=== PATIENT | female | born 2000 | race Caucasian/White ===

== ENCOUNTER 2024-05-24 19:11 | Emergency (ER) | payer OTHER, SELFPAY ==
[2024-05-24 19:24] VITALS: BP 137/74; PULSE 92; RESP 20; TEMP 37.2; O2SAT 97
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
== END 2024-05-24 19:48 | disposition home or self-care (01) ==
PROVIDERS: Emergency Provider Nurse Practitioner Family
DX: Z71.1 Person with feared health complaint in whom no diagnosis is made (principal)
CPT/HCPCS: 99202; G0463

== ENCOUNTER 2024-07-01 17:14 | Emergency (ER) | payer OTHER, SELFPAY ==
[2024-07-01 18:07] VITALS: BP 143/88; PULSE 86; RESP 20; TEMP 36.9; O2SAT 100
--- NOTE | 2024-07-01 18:16 | ED_ITS ---
HPI - Ear Problem General Chief complaint: Ear Stated complaint: cough/chest heavy Time Seen by Provider: 07/01/24 18:16 Source: patient, RN notes reviewed and old records reviewed Mode of arrival: ambulatory Limitations: no limitations History of Present Illness HPI Narrative: 24-year-old female to Express Care with complaint of bilateral ear pain and dry cough for 6 days. Patient does not disclose treat home. Patient denies fever, allergies, pertinent medical history, difficulty swallowing hearing changes. Patient able to tolerate fluids mouth. Patient resting comfortably in exam room in acute distress. Respirations even nonlabored. Related Data Home Medications Medication Instructions Recorded Confirmed sertraline 50 mg tablet 50 mg PO DAILY 05/24/24 07/03/24 Allergies Allergy/AdvReac Type Severity Reaction Status Date / Time No Known Allergies Allergy Verified 07/03/24 17:07 Review of Systems Review of Systems: All systems reviewed & are unremarkable except as noted in HPI and below Constitutional: Constitutional: Reports no additional constitutional complaints Eyes: Eyes: Reports no additional eye complaints ENT: Reports as per HPI and Reports otalgia ( Bilateral) Cardiovascular: Cardiovascular: Reports no additional cardiovascular complaints, Denies chest pain and Denies dyspnea Respiratory: Respiratory: Reports no additional respiratory complaints, Report s cough and Denies dyspnea Musculoskeletal: Musculoskeletal: Reports no additional musculoskeletal complaints Neurologic: Reports system reviewed and no additional complaints, except as documented Psychiatric: Psychiatric: Reports no additional psychiatric complaints PMFSH Past Medical History Medical History Depression Ear infection Social History Social History Smoking status: Current every day smoker Tobacco type: cigarettes and e-cigarettes/vaping Alcohol intake: unknown Substance use type: does not use Living arrangements: with family Gender identity (if verbalized by the patient): Female Comments At the time of my signature, I reviewed and agree with the nursing past medical, surgical, social, and family history. There is no relevant family history pertinent to the patient complaint. Exam Const: General: cooperative, healthy appearing, no acute distress, alert and well nourished Nutritional Appearance: well nourished Orientation/consciousness: patient oriented x3 Limitations: no limitations HENMT: Head: normal to inspection Ears: external ears normal, Abnormal EAC present EAC tenderness bilateral and TM abnormal bulging on the right, dull bilateral, erythematous bilateral, with fluid behind the TM bilateral and with loss of landmarks on the right Face/Nose/Sinus: Normal external nose present, Normal nares present, normal facial exam, No erythema and No edema Face and sinus: normal facial exam, no erythema and no edema Mouth: Yes Normal oral and palatal mucosa present Throat: posterior oropharynx abnormal erythema Eyes: General: appearance normal, both eyes and all related structures Neck: Neck: normal visual inspection, full ROM and no meningeal signs Lymphatic: no lymphadenopathy noted and no lymphedema noted Chest: Chest palpation & inspection: normal inspection of the chest Resp: Effort & Inspection: normal respiratory effort and able to speak in complete sentences Auscultation: clear to auscultation bilaterally Cardio: Jugular venous distension: no JVD Rate: regular rate Rhythm: regular rhythm Back/Spine/Pelvis: Cervical Spine: cervical ROM normal Skin: General skin exam: normal color, no rashes or lesions noted and turgor normal Neuro: General: patient oriented x3, gait normal, moves all extremities and no meningeal signs Speech: normal speech Gait exam (Neuro): Normal gait present Extrem: General: normal to inspection, full ROM and capillary refill normal Psych: Appearance: grossly normal and well kempt Course Course Emergency Course: Some parts of this dictation were generated by voice recognition software and may contain typographical and/or grammatical inaccuracies. Level of Care: Express Care Visit Vital Signs Vital signs: Vital Signs Temperature 36.9 C 07/01/24 18:07 Pulse Rate 86 07/01/24 18:07 Respiratory Rate 20 07/01/24 18:07 Blood Pressure 143/88 H 07/01/24 18:07 Pulse Oximetry 100 07/01/24 18:07 Temperature 36.9 C 07/01/24 18:07 Pulse Rate 86 07/01/24 18:07 Respiratory Rate 20 07/01/24 18:07 Blood Pressure 143/88 H 07/01/24 18:07 Pulse Oximetry 100 07/01/24 18:07 reviewed Medical Decision Making MDM Narrative Medical decision making narrative: 24-year-old female to Express Care with complaint of bilateral ear pain and dry cough for 6 days. Patient does not disclose treat home. Patient denies fever, allergies, pertinent medical history, difficulty swallowing hearing changes. Patient able to tolerate fluids mouth. Patient resting comfortably in exam room in acute distress. Respirations even nonlabored. Patient is sitting comfortably in exam room nontoxic in appearance. on exam, bilateral TMs erythematous, dull with fluid. Right TM bulging with loss landmarks. Posterior oropharynx erythematous. Findings consistent with bilateral otitis media. Patient appropriate for outpatient treatment and follow-up. Discharge instructions reviewed with patient, as well as provided in writing per nursing staff. The instructions also include specific and strict return/GO TO THE ER as well as f/u information. All questions have been answered, and the patient deny any further questions with discharge and discharge plan. Some parts of this dictation were generated by voice recognition software and may contain typographical and/or grammatical inaccuracies. Differential Diagnosis Differential Diagnosis: Otitis media, otitis externa, ruptured tympanic membrane, upper respiratory infection, COVID, influenza Vital Signs Vital Signs: Vital Signs Temperature 36.9 C 07/01/24 18:07 Pulse Rate 86 07/01/24 18:07 Respiratory Rate 20 07/01/24 18:07 Blood Pressure 143/88 H 07/01/24 18:07 Pulse Oximetry 100 07/01/24 18:07 Temperature 36.9 C 07/01/24 18:07 Pulse Rate 86 07/01/24 18:07 Respiratory Rate 20 07/01/24 18:07 Blood Pressure 143/88 H 07/01/24 18:07 Pulse Oximetry 100 07/01/24 18:07 Discharge Plan Discharge Clinical Impression: Bilateral acute otitis media Patient Disposition: Home, Self-Care Condition: Stable Instructions: Ear Infection (AC) Additional Instructions: -Alternate Tylenol and Motrin per package directions for fever or pain. -Antihistamine medication such as Benadryl at night and Zyrtec/Claritin/Christa during the day can help improve symptoms. -Use Flonase twice a day for 5 days then daily to help reduce the inflammation and dry up your sinuses. -You can also use Sudafed or Mucinex. Be sure to drink plenty of water with these medications at least 8 ounces with every dose and it is important to drink 8 to 10 glasses of water per day. Water is a natural decongestant -Eat and drink things that are easy to swallow, like tea or soup, or popsicles. -Oral rinses such as: Salt water gargles and/or may use topical anesthetic (eg. Chloraseptic spray) or lozenges to relieve dryness or throat pain). -Frequent hand washing or hand marketing intelligence analyst is one of the best ways to prevent spread of infection. -Using a vaporizer or humidifier at night will also help thin secretions and help with coughing up phlegm. -Follow up with primary care provider in 2-3 days if condition is not improving; or seek ER visit if you have trouble breathing, cannot drink enough fluids, have muffled voice, difficulty opening your mouth, or severe swelling. Prescriptions: New amoxicillin 875 mg tablet 875 mg PO Q12H Qty: 20 0RF Rx Instructions: STARTED ON 07/01/24 No Action sertraline 50 mg tablet 50 mg PO DAILY prednisone 20 mg tablet 20 mg PO BID Qty: 10 0RF promethazine-DM 6.25-15 mg/5 mL syrup 5 ml PO Q4-6H PRN (Reason: cough) Qty: 120 0RF Follow-up/Referrals: PHYSICIAN NOT ON STAFF,NONSTAFF [Primary Care Provider] - Stand Alone Forms: Work/School Release IP
== END 2024-07-01 18:28 | disposition home or self-care (01) ==
PROVIDERS: Emergency Provider Nurse Practitioner Family
DX: H66.93 Otitis media, unspecified, bilateral (principal); F17.210 Nicotine dependence, cigarettes, uncomplicated; F17.290 Nicotine dependence, other tobacco product, uncomplicated; F32.A Depression, unspecified
CPT/HCPCS: 99213; G0463

== ENCOUNTER 2024-07-03 16:47 | Emergency (ER) | payer OTHER, SELFPAY ==
[2024-07-03 16:56] VITALS: BP 130/71; PULSE 73; RESP 18; TEMP 36.3; O2SAT 99
--- NOTE | 2024-07-03 17:07 | ED.URI ---
HPI - URI/Sore Throat General Chief Complaint: Upper Respiratory Infection Stated Complaint: Cough Time Seen by Provider: 07/03/24 17:07 Source: patient, RN notes reviewed and old records reviewed Mode of arrival: ambulatory Limitations: no limitations History of Present Illness HPI Narrative: 24 year old female who presents to [facility] care accompanied by mother with complaints of cough for the past week and has been taking DayQuil and NyQuil and also Tussin without improvement. Patient seen in clinic on the and received Amoxicillin for double ear infection which she reports that she has been taking. Patient admits to vaping and cigarette use. MD elicited complaint: cough and other (bilateral ear infection) Onset (ago): week(s) (1) Severity: moderate Able to tolerate fluids by mouth: Yes Treatments prior to arrival: antibiotics and other (DayQuil, NyQuil and Tussin) Related Data Home Medications Medication Instructions Recorded Confirmed sertraline 50 mg tablet 50 mg PO DAILY 05/24/24 07/03/24 Allergies Allergy/AdvReac Type Severity Reaction Status Date / Time No Known Allergies Allergy Verified 07/03/24 17:07 Review of Systems Review of Systems: CONSTITUTIONAL: Denies malaise, chills, sweats, or fever. EYES: Denies visual changes, redness, or discharge. ENT: Reports rhinorrhea, congestion, no sinus pain, bilateral otalgia and no sore throat. CARDIOVASCULAR: Denies chest pain, palpitations, or edema. RESPIRATORY: Reports cough dry.? Denies dyspnea. GASTROINTESTINAL: Denies abdominal pain, nausea, vomiting, diarrhea SKIN: Denies rash or itching. MUSCULOSKELETAL: Denies myalgia. NEUROLOGIC: Denies headache. All systems reviewed & are unremarkable except as noted in HPI and below PMFSH Past Medical History Medical History Depression Ear infection Social History Social History Smoking status: Current every day smoker Tobacco type: cigarettes and e-cigarettes/vaping Alcohol intake: unknown Substance use type: does not use Living arrangements: with family Gender identity (if verbalized by the patient): Female Comments At time of signature, agree with nursing past medical, surgical, social and family history. There is no relevant family history pertinent to the presenting complaint Exam Narrative: GENERAL: Well-appearing, well-nourished, and in no acute distress. HEAD: Normocephalic EYES: PERRLA, conjunctivae clear ENT: Nares clear, turbinates edematous and erythematous, clear discharge. Mucous membranes moist.Mild redness bilateral TM presently on Amoxicillin for ear infection; no tragal tenderness. Oropharynx erythematous without lesions. Tonsils not enlarged and without exudate, no drooling, no hoarseness, no trismus, uvula midline.post nasal drainage noted NECK: Supple. No lymphadenopathy CHEST: Clear to auscultation, breath sounds equal. No wheezing, rhonchi, rales, or stridor. No respiratory distress, speaks in full sentences.dry cough noted HEART: Regular rate and rhythm. No murmur heard. SKIN: Warm, dry, no rash. NEURO: Alert and oriented x3. PSYCH: Normal mood and affect Course Course Emergency Course: Patient is aware of diagnosis, understands and agrees to treatment plan.? Anticipatory guidance given.? Patient agrees to follow-up as directed and is aware of reasons to seek care at the emergency department. Portions of this record may have been created with voice recognition software Level of Care: Express Care Visit Vital Signs Vital signs: Vital Signs Temperature 36.3 C L 07/03/24 16:56 Pulse Rate 73 07/03/24 16:56 Respiratory Rate 18 07/03/24 16:56 Blood Pressure 130/71 07/03/24 16:56 Pulse Oximetry 99 07/03/24 16:56 Oxygen Delivery Room Air 07/03/24 16:56 Temperature 36.3 C L 07/03/24 16:56 Pulse Rate 73 07/03/24 16:56 Respiratory Rate 18 07/03/24 16:56 Blood Pressure 130/71 07/03/24 16:56 Pulse Oximetry 99 07/03/24 16:56 Oxygen Delivery Room Air 07/03/24 16:56 Reviewed MDM - URI/Sore Throat MDM Narrative Medical decision making narrative: Differential diagnosis considered: Kang virus, strep pharyngitis, allergic rhinitis, upper respiratory tract infection, sinusitis, rhinosinusitis, nasopharyngitis. viral pharyngitis, otitis media, otitis externa, pneumonia, bronchitis, viral cough syndrome, viral syndrome, and influenza.? Exam findings show no acute concerns or changes; patient is non-toxic appearing and is in no distress.? Patient is appropriate for outpatient treatment and follow-up. Differential Diagnosis Differential diagnosis: Likely upper respiratory infection, otitis media, viral infection and other (acute cough) Lab Data Attestation: I reviewed the patient's lab results. Critical Care Time Critical Care Time Critical Care Time: No Discharge Plan Discharge Clinical Impression: Acute cough Patient Disposition: Home, Self-Care Condition: Stable Instructions: Antibiotic Form, Acute Cough (ED) Additional Instructions: Increase fluids especially juices and water [id number] cough and cold medicine of your choice for your symptoms Prescription cough medicine as directed--caution drowsiness and no driving or alcohol Tylenol or ibuprofen for any fever pain Zyrtec D daily Steroids as directed--take with food heat to the face 20-30 minutes 4-6 times a day for pain Salt water gargles, throat lozenges or throat sprays as desired Continue antibiotics that were ordered on the as ordered. If your symptoms persist, change or worsen significantly before you can contact your personal physician then please, without delay, go to the emergency department for further evaluation. Follow-up with PCP in 7-10 days or sooner if needed Follow up with PCP soon in regards to your blood pressure which is elevated above threshold for referral. Blood pressure above 120/80 may indicate pre-hypertension. 130/71 Prescriptions: New prednisone 20 mg tablet 20 mg PO BID Qty: 10 0RF promethazine-DM 6.25-15 mg/5 mL syrup 5 ml PO Q4-6H PRN (Reason: cough) Qty: 120 0RF No Action sertraline 50 mg tablet 50 mg PO DAILY amoxicillin 875 mg tablet 875 mg PO Q12H Qty: 20 0RF Rx Instructions: STARTED ON 07/01/24 Follow-up/Referrals: UNKNOWN,DOCTOR [Primary Care Provider] - Time of Disposition: 17:27 Quality [place] Coma Scale Eyes: Open Verbal: Oriented and Alert Motor: Follows Commands [place] Coma Total Score: 15
== END 2024-07-03 17:28 | disposition home or self-care (01) ==
PROVIDERS: Emergency Provider Registered Nurse
DX: R05.1 Acute cough (principal); F17.210 Nicotine dependence, cigarettes, uncomplicated; F17.290 Nicotine dependence, other tobacco product, uncomplicated; F32.A Depression, unspecified
CPT/HCPCS: 99213; G0463

== ENCOUNTER 2024-11-29 10:33 | Emergency (ER) | payer OTHER, SELFPAY ==
[2024-11-29 10:38] VITALS: BP 146/73; PULSE 70; RESP 20; TEMP 36.3; O2SAT 99
--- NOTE | 2024-11-29 10:47 | ED.EAR ---
HPI - Ear Problem General Chief complaint: Ear Stated complaint: poss ear infection Time Seen by Provider: 11/29/24 10:47 Source: patient, RN notes reviewed and old records reviewed Mode of arrival: ambulatory Limitations: no limitations History of Present Illness HPI Narrative: 24 year old female who [facility] to [facility] with complaints of ear pain starting yesterday to bilateral ears with left ear the worse. Patient reports that she also has noted some cough and also some nasal drainage. Patient reports no fevers, chills or sweats, denies any sore throat. body aches or headache pain. 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 MD Complaint: ear pain Location: left ear Duration: constant Severity: moderate Discharge from ear: Reports no Associated symptoms ear: other (pain left ear) Related Data Home Medications ?Medication ?Instructions ?Recorded ?Confirmed ?Last Taken ?Type sertraline 50 mg tablet 50 mg PO DAILY 05/24/24 11/29/24 Unknown History Allergies Allergy/AdvReac Type Severity Reaction Status Date / Time No Known Allergies Allergy Verified 11/29/24 10:40 Review of Systems Review of Systems: CONSTITUTIONAL: Denies malaise, chills, sweats, or fever. EYES: Denies visual changes, redness, or discharge. ENT: Reports rhinorrhea, congestion,no sinus pain,positive otalgia and no sore throat. CARDIOVASCULAR: Denies chest pain, palpitations, or edema. RESPIRATORY: Reports cough.? Denies dyspnea. GASTROINTESTINAL: Denies abdominal pain, nausea, vomiting, diarrhea SKIN: Denies rash or itching. MUSCULOSKELETAL: Denies myalgia. NEUROLOGIC: Denies headache. All systems reviewed & are unremarkable except as noted in HPI and below PMFSH Past Medical History Medical History Ear infection Depression Social History Social History Smoking status: Current every day smoker Tobacco type: cigarettes and e-cigarettes/vaping Alcohol intake: unknown Substance use type: does not use Living arrangements: with family Gender identity (if verbalized by the patient): Female Comments At time of signature, agree with nursing past medical, surgical, social and family history. There is no relevant family history pertinent to the presenting complaint Exam Narrative: GENERAL: Well-appearing, well-nourished, and in no acute distress. HEAD: Normocephalic EYES: PERRLA, conjunctivae clear ENT: Nares clear, turbinates edematous and erythematous, clear discharge. Mucous membranes moist Left TM with redness, Right TM pearly dumont with dull light reflex bilaterally; no tragal tenderness. Oropharynx erythematous without lesions. Tonsils not enlarged and without exudate, no drooling, no hoarseness, no trismus, uvula midline.post nasal discharge noted NECK: Supple. No lymphadenopathy CHEST: Clear to auscultation, breath sounds equal. No wheezing, rhonchi, rales, or stridor. No respiratory distress, speaks in full sentences. occasional cough noted SAO2 99% on room air HEART: Regular rate and rhythm. No murmur heard. SKIN: Warm, dry, no rash. NEURO: Alert and oriented x3. PSYCH: Normal mood and affect Course Course Emergency Course: Patient is aware of diagnosis, understands and agrees to treatment plan.? Anticipatory guidance given.? Patient agrees to follow-up as directed and is aware of reasons to seek care at the emergency department. Portions of this record may have been created with voice recognition software Level of Care: Express Care Visit Vital Signs Vital signs: Vital Signs Temperature 36.3 C L 11/29/24 10:38 Pulse Rate 70 11/29/24 10:38 Respiratory Rate 20 11/29/24 10:38 Blood Pressure 146/73 H 11/29/24 10:38 Pulse Oximetry 99 11/29/24 10:38 Oxygen Delivery Room Air 11/29/24 10:38 Temperature 36.3 C L 11/29/24 10:38 Pulse Rate 70 11/29/24 10:38 Respiratory Rate 20 11/29/24 10:38 Blood Pressure 146/73 H 11/29/24 10:38 Pulse Oximetry 99 11/29/24 10:38 Oxygen Delivery Room Air 11/29/24 10:38 Reviewed Medical Decision Making Differential Diagnosis Differential Diagnosis: URI, otitis media, cough, rhinitis, Medical Records Medical records reviewed: Yes I reviewed the external patient's medical records. Vital Signs Vital Signs: Vital Signs Temperature 36.3 C L 11/29/24 10:38 Pulse Rate 70 11/29/24 10:38 Respiratory Rate 20 11/29/24 10:38 Blood Pressure 146/73 H 11/29/24 10:38 Pulse Oximetry 99 11/29/24 10:38 Oxygen Delivery Room Air 11/29/24 10:38 Temperature 36.3 C L 11/29/24 10:38 Pulse Rate 70 11/29/24 10:38 Respiratory Rate 20 11/29/24 10:38 Blood Pressure 146/73 H 11/29/24 10:38 Pulse Oximetry 99 11/29/24 10:38 Oxygen Delivery Room Air 11/29/24 10:38 reviewed Critical Care Time Critical Care Time Critical Care Time: No Discharge Plan Discharge Clinical Impression: Left otitis media Qualifiers: Otitis media type: serous Chronicity: acute Recurrence: not specified as recurrent Qualified Code(s): H65.02 - Acute serous otitis media, left ear URI (upper respiratory infection) Qualifiers: URI type: unspecified URI Qualified Code(s): J06.9 - Acute upper respiratory infection, unspecified Patient Disposition: Home, Self-Care Condition: Stable Instructions: Antibiotic Form, Ear Infection (GEN) Additional Instructions: Increase fluids especially juices and water Xvvk-tyi-eilwawl cough and cold medicine of your choice for your symptoms Zyrtec Claritin or Christa daily heat to the face 20-30 minutes 4-6 times a day for pain Salt water gargles, throat lozenges or throat sprays as desired Amoxicillin as prescribed take all doses If your symptoms persist, change or worsen significantly before you can contact your personal physician then please, without delay, go to the emergency department for further evaluation. Follow-up with PCP in 7-10 days or sooner if needed Follow up with PCP soon in regards to your blood pressure which is elevated above threshold for referral. Blood pressure above 120/80 may indicate pre-hypertension. 146/ Patient Language: Marshallese Prescriptions: New amoxicillin 875 mg tablet 875 mg PO Q12H Qty: 20 0RF Allergy Relief (loratadine) 10 mg capsule 10 mg PO DAILY Qty: 30 0RF No Action sertraline 50 mg tablet 50 mg PO DAILY amoxicillin 875 mg tablet 875 mg PO Q12H Qty: 20 0RF Rx Instructions: STARTED ON 07/01/24 prednisone 20 mg tablet 20 mg PO BID Qty: 10 0RF promethazine-DM 6.25-15 mg/5 mL syrup 5 ml PO Q4-6H PRN (Reason: cough) Qty: 120 0RF Follow-up/Referrals: PHYSICIAN NOT ON STAFF,NONSTAFF [Primary Care Provider] - Time of Disposition: 10:58 Quality Clare Coma Scale Eyes: Open Verbal: Oriented and Alert Motor: Follows Commands Clare Coma Total Score: 15
--- OUTSIDE RECORDS SUMMARY | 2024-11-29 12:19 | XMS_ITS | Clinical Summary ---
Author Organization [facility] Address [id number] [place] [id number] Care Team Providers Care Automatic Transmission Mechanic Name Role Phone Unavailable Primary Care Provider Unavailabl e Medications sertraline (ZOLOFT) 50 mg tablet Take 1 Tablet by mouth daily. 09/24/2024 Active Active Problems No known active problems Encounters Date Type Department Care Team Description 11/24/2024 External Device Data [facility] ABSTRACTION Provider, Abstract 11/24/2024 External Device Data [facility] ABSTRACTION Provider, Abstract 11/13/2024 External Device Data [facility] ABSTRACTION Provider, Abstract 11/12/2024 External Device Data [facility]STRACTION Provider, Abstract 11/10/2024 External Device Data [facility]STRACTION Provider, Abstract 10/27/2024 External Device Data [facility] ABSTRACTION Provider, Abstract 10/05/2024 External Device Data [facility] ABSTRACTION Provider, Abstract 10/05/2024 External Device Data [facility] ABSTRACTION Provider, Abstract 10/05/2024 External Device Data [facility] ABSTRACTION Provider, Abstract 10/01/2024 3:15 PM DIRECTOR OF WEB MARKETING Ancillary Procedure [facility] [id number] [place] [address] [place] [address] Elvin Hanna DNP Injury of left ankle, initial encounter 10/01/2024 2:45 PM DIRECTOR OF WEB MARKETING Office Visit [facility] [id number] [address] Elvin Hanna DNP Injury of left ankle, initial encounter (Primary Dx) from Last 3 Months Social History Tobacco Use Types Packs/Day Years Used Date Smoking Tobacco: Never Smokeless Tobacco: Never Tobacco Cessation:Counseling Given: Not Answered Alcohol Use Standard Drinks/Week Comments Yes 0 (1 standard drink = 0.6 oz pur e alcohol) Comments Unknown Sex and Gender Information Value Date Recorded Sex Assigned at Not on file Legal Sex Female 2:32 PM DIRECTOR OF WEB MARKETING Gender Identity Not on file Sexual Orientation Not on file Last Filed Vital Signs Vital Sign Reading Time Taken Comments Blood Pressure 122/83 10/01/2024 2:43 PM DIRECTOR OF WEB MARKETING Pulse 72 10/01/2024 2:43 PM DIRECTOR OF WEB MARKETING Temperature 36.6 C (97.8 F) 10/01/2024 2:43 PM DIRECTOR OF WEB MARKETING Respiratory Rate 19 10/01/2024 2:43 PM DIRECTOR OF WEB MARKETING Oxygen Saturation 97% 10/01/2024 2:43 PM DIRECTOR OF WEB MARKETING Inhaled Oxygen Concentration - - Weight 106.6 kg (235 lb) 10/01/2024 2:43 PM DIRECTOR OF WEB MARKETING Height 165.1 cm (5' 5 ) 10/01/2024 2:43 PM DIRECTOR OF WEB MARKETING Body Mass Index 39.11 10/01/2024 2:43 PM DIRECTOR OF WEB MARKETING Plan of Treatment Health Maintenance Due Date Last Done Comments HPV VACCINES (1 - 3-dose series) 2014 DTAP/TDAP/TD VACCINES (1 - Tdap) 2018 HEPATITIS B VACCINES (1 of 3 - 19+ 3-dose series) 10/2017 CERVICAL CANCER SCREENING 2020 PAP SMEAR 2020 PAP SMEAR 2020 INFLUENZA VACCINE (#1) 2024 Procedures Procedure Name Priority Date/Time Associated Diagnosis Comments XR ANKLE 3+ VW LEFT Stat 10/01/2024 3 :16 PM DIRECTOR OF WEB MARKETING Injury of left ankle, initial encounter from Last 3 Months Results * XR ANKLE 3+ VW LEFT (10/01/2024 3:16 PM DIRECTOR OF WEB MARKETING) Anatomical Region Laterality Modality Ankle / Foot Computed Radiogr aphy 10/01/2024 3:17 PM DIRECTOR OF WEB MARKETING Impressions 10/01/2024 3:23 PM DIRECTOR OF WEB MARKETING IMPRESSION: No acute findings. DICTATION LOCATION: Location 1 - [facility] Narrative 10/01/2024 3:23 PM DIRECTOR OF WEB MARKETING EXAM: XR ANKLE 3+ VW LEFT DIAGNOSIS/REASON FOR EXAM: Injury of left ankle, initial encounter, fell on ice DATE AND TIME: 10/01/2024 3:16 PM COMPARISON: None available TECHNIQUE: Three views of the left ankle FINDINGS: No acute fracture or dislocation. Ankle mortise is congruent. No degenerative findings. No ankle effusion or significant soft tissue swelling. Procedure Note Josafat Glover MD - 10/01/2024 EXAM: XR ANKLE 3+ VW LEFT DIAGNOSIS/REASON FOR EXAM: Injury of left ankle, initial encounter, fell on ice DATE AND TIME: 10/01/2024 3:16 PM COMPARISON: None available TECHNIQUE: Three views of the left ankle FINDINGS: No acute fracture or dislocation. Ankle mortise is congruent. No degenerative findings. No ankle effusion or significant soft tissue swelling. IMPRESSION: No acute findings. DICTATION LOCATION: Location - [facility] us Elvin Hanna DNP DIAGNOSTIC IMAGING ORDERABLES F inal Result from Last 3 Months
== END 2024-11-29 11:01 | disposition home or self-care (01) ==
PROVIDERS: Emergency Provider Registered Nurse
DX: H65.02 Acute serous otitis media, left ear (principal); J06.9 Acute upper respiratory infection, unspecified; F17.210 Nicotine dependence, cigarettes, uncomplicated; F17.290 Nicotine dependence, other tobacco product, uncomplicated; F32.A Depression, unspecified
CPT/HCPCS: 99213; G0463

== ENCOUNTER 2025-02-02 16:45 | Emergency (ER) | payer SELFPAY ==
--- OUTSIDE RECORDS SUMMARY | 2025-02-02 16:48 | XMS_ITS | Encounter Summary ---
Author Organization [facility] Address [address] [place] [address] Care Team Providers Care Workplace Trainer And Assessor Name Role Phone Unavailable Primary Care Provider Unavailabl e Encounter Details Date Type Department Care Team (Late st Contact Info) Description 02/01/2025 External Device Data [facility] Provider, Abstract NO ADDRESS ON FILE Social History Tobacco Use Types Packs/Day Years Used Date Smoking Tobacco: Never Smokeless Tobacco: Never Alcohol Use Standard Drinks/Week Comments Yes 0 (1 standard drink = 0.6 oz pur e alcohol) Comments Unknown Sex and Gender Information Value Date Recorded Sex Assigned at Not on file Legal Sex Female 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
--- OUTSIDE RECORDS SUMMARY | 2025-02-02 16:48 | XMS_ITS | Clinical Summary ---
Author Organization [facility] Address [id number] [place] [id number] Care Team Providers Care Motor Equipment Lieutenant Name Role Phone Unavailable Primary Care Provider Unavailabl e Medications sertraline (ZOLOFT) 50 mg tablet Take 1 Tablet by mouth daily. 09/24/2024 Active Active Problems No known active problems Encounters Date Type Department Care Team Description 02/01/2025 External Device Data [facility] Provider, Abstract 01/27/2025 External Device Data [facility] ABSTRACTION Provider, Abstract 01/26/2025 External Device Data [facility]STRACTION Provider, Abstract 01/25/2025 External Device Data [facility]STRACTION Provider, Abstract 12/21/2024 External Device Data [facility] ABSTRACTION Provider, Abstract 11/24/2024 External Device Data [facility]STRACTION Provider, Abstract 11/24/2024 External Device Data [facility] ABSTRACTION Provider, Abstract 11/13/2024 External Device Data [facility] ABSTRACTION Provider, Abstract 11/12/2024 External Device Data [facility] ABSTRACTION Provider, Abstract 11/10/2024 External Device Data [facility] ABSTRACTION Provider, Abstract from Last 3 Months Social History Tobacco Use Types Packs/Day Years Used Date Smoking Tobacco: Never Smokeless Tobacco: Never Tobacco Cessation:Counseling Given: Not Answered Alcohol Use Standard Drinks/Week Comments Yes 0 (1 standard drink = 0.6 oz pur e alcohol) Comments Unknown Sex and Gender Information Value Date Recorded Sex Assigned at Not on file Legal Sex Female 2:32 PM METAL ROOM DENTAL TECHNICIAN Gender Identity Not on file Sexual Orientation Not on file Last Filed Vital Signs Vital Sign Reading Time Taken Comments Blood Pressure 122/83 10/01/2024 2:43 PM METAL ROOM DENTAL TECHNICIAN Pulse 72 10/01/2024 2:43 PM METAL ROOM DENTAL TECHNICIAN Temperature 36.6 C (97.8 F) 10/01/2024 2:43 PM METAL ROOM DENTAL TECHNICIAN Respiratory Rate 19 10/01/2024 2:43 PM METAL ROOM DENTAL TECHNICIAN Oxygen Saturation 97% 10/01/2024 2:43 PM METAL ROOM DENTAL TECHNICIAN Inhaled Oxygen Concentration - - Weight 106.6 kg (235 lb) 10/01/2024 2:43 PM METAL ROOM DENTAL TECHNICIAN Height 165.1 cm (5' 5) 10/01/2024 2:43 PM METAL ROOM DENTAL TECHNICIAN Body Mass Index 39.11 10/01/2024 2:43 PM METAL ROOM DENTAL TECHNICIAN Plan of Treatment Health Maintenance Due Date Last Done Comments HPV VACCINES (1 - 3-dose series) 2014 DTAP/TDAP/TD VACCINES (1 - Tdap) 2018 HEPATITIS B VACCINES (1 of 3 - 19+ 3-dose series) 10/2017 CERVICAL CANCER SCREENING 2020 HPV/Cotest (21-29) 2020 PAP SMEAR 2020 INFLUENZA VACCINE (#1) 2024
[2025-02-02 16:56] VITALS: BP 143/75; PULSE 95; RESP 20; TEMP 36.7; O2SAT 99
[2025-02-02 17:09] LABS: EDSTREPNEGPOS1 Negative (Negative)
--- NOTE | 2025-02-02 17:09 | ED_ITS ---
HPI - URI/Sore Throat General Chief Complaint: Upper Respiratory Infection Stated Complaint: sorethroat Time Seen by Provider: 02/02/25 17:09 Source: patient Mode of arrival: ambulatory Limitations: no limitations History of Present Illness HPI Narrative: 24-year-old female presents with complaint Runny nose, postnasal drainage, sore throat, cough for the past 4-5 days. Afebrile. Not taking any [id number] medications to treat symptoms. all systems reviewed and negative except noted above. Related Data Home Medications ?Medication ?Instructions ?Recorded ?Confirmed ?Last Taken ?Type sertraline 50 mg tablet 50 mg PO DAILY 05/24/24 11/29/24 Unknown History Allergies Allergy/AdvReac Type Severity Reaction Status Date / Time No Known Allergies Allergy Verified 02/02/25 17:01 Review of Systems Review of Systems: CONSTITUTIONAL: Denies fever, chills, or sweats. EYES: Denies visual changes, redness, or discharge. ENT: Reports rhinorrhea, congestion, sore throat. Denies otalgia. CARDIOVASCULAR: Denies chest pain, palpitations, or edema. RESPIRATORY: reports cough. Denies dyspnea. GASTROINTESTINAL: Denies abdominal pain, nausea, vomiting, or diarrhea. GENITOURINARY: Denies dysuria or hematuria. SKIN: Denies rash or itching. MUSCULOSKELETAL: Denies back pain, joint pain, or myalgia. NEUROLOGIC: Denies headache, numbness, or weakness. PSYCHIATRIC: Denies anxiety or depression. All other systems reviewed are negative, except as documented in HPI. PMFSH Past Medical History Medical History Ear infection Depression Social History Social History Smoking status: Current every day smoker Tobacco type: cigarettes and e-cigarettes/vaping Alcohol intake: unknown Substance use type: does not use Living arrangements: with family Gender identity (if verbalized by the patient): Female Comments At time of signature, agree with nursing past medical, surgical, social and family history. There is no relevant family history pertinent to the presenting complaint. Exam Narrative: GENERAL: This is a well-nourished, well-developed patient, in no apparent distress. HEAD: normocephalic, atraumatic. EYES: PERRL. Sclera clear/white. Vision is grossly intact. EARS: External ears normal, auditory canals clear and without drainage, TMs normal without perforation. Hearing grossly intact. NOSE: External nose normal with clear nasal drainage, erythema to bilateral nares THROAT: Mucous membranes moist, postnasal drainage without erythema, swelling or exudates NECK: Neck supple, non-tender without lymphadenopathy, masses or thyromegaly. CARDIOVASCULAR: Regular rate and rhythm without murmurs, gallops, or rubs. RESPIRATORY: Clear to auscultation. Breath sounds equal bilaterally. No wheezes, rales, or rhonchi. SKIN: warm, Dry, intact with no suspicious lesions or rash, good texture and turgor. NEURO: awake, alert, and oriented to person, place and time. There were no obvious focal neurologic abnormalities. EXTREMITIES: No joint tenderness, effusion, or edema noted. Course Course Level of Care: Express Care Visit Vital Signs Vital signs: Vital Signs Temperature 36.7 C 02/02/25 16:56 Pulse Rate 95 02/02/25 16:56 Respiratory Rate 20 02/02/25 16:56 Blood Pressure 143/75 H 02/02/25 16:56 Pulse Oximetry 99 02/02/25 16:56 Oxygen Delivery Room Air 02/02/25 16:56 Temperature 36.7 C 02/02/25 16:56 Pulse Rate 95 02/02/25 16:56 Respiratory Rate 20 02/02/25 16:56 Blood Pressure 143/75 H 02/02/25 16:56 Pulse Oximetry 99 02/02/25 16:56 Oxygen Delivery Room Air 02/02/25 16:56 reviewed MDM - URI/Sore Throat MDM Narrative Medical decision making narrative: negative rapid strep. Strep culture ordered. Recommend [id number] medications to treat sinusitis symptoms. Patient is well-appearing, nontoxic. Differential Diagnosis Differential diagnosis: Likely upper respiratory infection, sinusitis, viral infection and pharyngitis Lab Data Labs: Lab Results 02/02/25 Range/Units 17:07 POC Grp A Strep Screen Negative (Negative) Discharge Plan Discharge Clinical Impression: Acute sinusitis Qualifiers: Sinusitis location: unspecified location Recurrence: not specified as recurrent Qualified Code(s): J01.90 - Acute sinusitis, unspecified Patient Disposition: Home Condition: Stable Instructions: Sinusitis (ED) Additional Instructions: your strep test was negative today. A strep culture was ordered and results will take 24-48 hours. If her strep culture is positive we will call you at that time and prescribed an antibiotic. Take medications as prescribed. Drink at least 64 oz of water a day. Place cool mist humidifier in bedroom where you sleep. Follow-up with your doctor if symptoms are not improving. Patient Language: Burkinan Prescriptions: New benzonatate 200 mg capsule 200 mg PO TID PRN (Reason: cough) Qty: 20 0RF fluticasone propionate [Flonase Allergy Relief] 50 mcg/actuation spray,suspension 1 spray intranasal BID Qty: 16 0RF Rx Instructions: administer into each nostril loratadine [Claritin] 10 mg tablet 10 mg PO DAILY Qty: 30 0RF No Action sertraline 50 mg tablet 50 mg PO DAILY Allergy Relief (loratadine) 10 mg capsule 10 mg PO DAILY Qty: 30 0RF Follow-up/Referrals: Josemanuel Beasley M.D. [Primary Care Provider] - Time of Disposition: 17:15
== END 2025-02-02 17:21 | disposition home or self-care (01) ==
PROVIDERS: Emergency Provider Nurse Practitioner Family; PCP Family Medicine
DX: J01.90 Acute sinusitis, unspecified (principal); F17.210 Nicotine dependence, cigarettes, uncomplicated; F17.290 Nicotine dependence, other tobacco product, uncomplicated; F32.A Depression, unspecified
CPT/HCPCS: 87081; 87880; 99213; G0463

== ENCOUNTER 2025-07-06 11:27 | Emergency (ER) | payer OTHER, SELFPAY ==
[2025-07-06 11:30] VITALS: BP 148/77; PULSE 89; RESP 18; TEMP 36.5; O2SAT 99
--- NOTE | 2025-07-06 11:40 | ED_ITS ---
HPI - URI/Sore Throat General Chief Complaint: Ear Stated Complaint: Bilateral ear plain Time Seen by Provider: 07/06/25 11:38 Source: patient and RN notes reviewed Mode of arrival: ambulatory Limitations: no limitations History of Present Illness HPI Narrative: 25-year-old female presents with concern for sore throat, bilateral ear pain, hoarse voice. She has been taking [id number] medication without relief. She denies fever, body aches, chills, sweats MD elicited complaint: sore throat and other (Ear pain) Related Data Allergies Allergy/AdvReac Type Severity Reaction Status Date / Time No Known Allergies Allergy Verified 07/06/25 11:39 Review of Systems Review of Systems: CONSTITUTIONAL: Denies malaise, chills, sweats, or fever. EYES: Denies visual changes, redness, or discharge. ENT: Reports rhinorrhea, congestion, otalgia and sore throat. CARDIOVASCULAR: Denies chest pain, palpitations, or edema. RESPIRATORY: Reports cough. Denies dyspnea. GASTROINTESTINAL: Denies abdominal pain, nausea, vomiting, diarrhea SKIN: Denies rash or itching. MUSCULOSKELETAL: Denies myalgia. NEUROLOGIC: Denies headache. All systems reviewed & are unremarkable except as noted in HPI and below PMFSH Past Medical History Medical History Ear infection Depression Social History Social History Smoking status: Current every day smoker Tobacco type: cigarettes and e-cigarettes/vaping Alcohol intake: unknown Substance use type: does not use Living arrangements: with family Gender identity (if verbalized by the patient): Female Comments At time of signature, agree with nursing past medical, surgical, social and family history. There is no relevant family history pertinent to the presenting complaint Exam Narrative: GENERAL: Well-appearing, well-nourished, and in no acute distress. HEAD: Normocephalic EYES: PERRLA, conjunctivae clear ENT: Nares clear. Mucous membranes moist. TM pearly dumont with sharp light reflex bilaterally; no tragal tenderness. Oropharynx not erythematous without lesions. Tonsils not enlarged and without exudate, no drooling, hoarse voice, no trismus, uvula midline. NECK: Supple. No lymphadenopathy CHEST: Clear to auscultation, breath sounds equal. No wheezing, rhonchi, rales, or stridor. No respiratory distress, speaks in full sentences. HEART: Regular rate and rhythm. No murmur heard. SKIN: Warm, dry, no rash. NEURO: Alert and oriented x3. PSYCH: Normal mood and affect Course Course Emergency Course: Patient is aware of diagnosis, understands and agrees to treatment plan. Anticipatory guidance given. Patient agrees to follow-up as directed and is aware of reasons to seek care at the emergency department. Portions of this record may have been created with voice recognition software Level of Care: Express Care Visit Vital Signs Vital signs: Reviewed. MDM - URI/Sore Throat MDM Narrative Medical decision making narrative: Differential diagnosis considered: Kang virus, strep pharyngitis, allergic rhinitis, upper respiratory tract infection, sinusitis, rhinosinusitis, nasopharyngitis. viral pharyngitis, otitis media, otitis externa, pneumonia, br onchitis, viral cough syndrome, viral syndrome, and influenza. Exam findings show no acute concerns or changes; patient is non-toxic appearing and is in no distress. Patient is appropriate for outpatient treatment and follow-up. Lab Data Attestation: I reviewed the patient's lab results. Critical Care Time Critical Care Time Critical Care Time: No Discharge Plan Discharge Clinical Impression: Upper respiratory infection Patient Disposition: Home Condition: Stable Instructions: Upper Respiratory Infection (ED) Additional Instructions: Your rapid strep swab was negative today at [facility]. A throat culture will be sent to the laboratory for further testing. If the test is positive, you will receive a phone call within 48 hours and an appropriate antibiotic will be initiated at that time. Your symptoms are likely due to a viral illness, which is not treated with antibiotics. Viral symptoms can be present for up to a few weeks. -Alternate Tylenol and Motrin per package directions for fever or pain. -Antihistamine medication such as Benadryl at night and Zyrtec during the day can help improve symptoms. -Eat and drink things that are easy to swallow, like tea or soup, or popsicles to suck on. -Oral rinses such as: Salt water gargles and/or may use topical anesthetic (eg. Chloraseptic spray) or lozenges to relieve dryness or throat pain). -Frequent hand washing or hand tufting machine fixer is one of the best ways to prevent spread of infection. -Follow up with primary care provider in 2-3 days if condition is not improving; or seek ER visit if you have trouble breathing, cannot drink enough fluids, have muffled voice, difficulty opening your mouth, or severe swelling. Patient Language: Setswana Prescriptions: New prednisone 20 mg tablet 40 mg PO DAILY 5 Days Qty: 10 0RF No Action loratadine [Claritin] 10 mg tablet 10 mg PO DAILY Qty: 30 0RF Follow-up/Referrals: UNKNOWN,DOCTOR [Primary Care Provider] Stand Alone Forms: Work/School Release IP Time of Disposition: 11:50
[2025-07-06 11:51] LABS: EDSTREPNEGPOS1 Negative (Negative)
--- OUTSIDE RECORDS SUMMARY | 2025-07-06 13:03 | XMS_ITS | Clinical Summary ---
Author Organization [facility] Address [id number] [place] [id number] Care Team Providers Care Fleet Director Name Role Phone Unavailable Primary Care Provider Unavailabl e Medications sertraline (ZOLOFT) 50 mg tablet Take 1 Tablet by mouth daily. 09/24/2024 Active Active Problems No known active problems Encounters Date Type Department Care Team Description 2025 External Device Data [facility] ABSTRACTION Provider, Abstract 05/04/2025 External Device Data [facility]STRACTION Provider, Abstract [...] on file Legal Sex Female 2:32 PM SENIOR APPLICATIONS DEVELOPER Gender Identity Not on file Sexual Orientation Not on file Last Filed Vital Signs Vital Sign Reading Time Taken Comments Blood Pressure 122/83 10/01/2024 2:43 PM SENIOR APPLICATIONS DEVELOPER Pulse 72 10/01/2024 2:43 PM SENIOR APPLICATIONS DEVELOPER Temperature 36.6 C (97.8 F) 10/01/2024 2:43 PM SENIOR APPLICATIONS DEVELOPER Respiratory Rate 19 10/01/2024 2:43 PM SENIOR APPLICATIONS DEVELOPER Oxygen Saturation 97% 10/01/2024 2:43 PM SENIOR APPLICATIONS DEVELOPER Inhaled Oxygen Concentration - - Weight 106.6 kg (235 lb) 10/01/2024 2:43 PM SENIOR APPLICATIONS DEVELOPER Height 165.1 cm (5' 5) 10/01/2024 2:43 PM SENIOR APPLICATIONS DEVELOPER Body Mass Index 39.11 10/01/2024 2:43 PM SENIOR APPLICATIONS DEVELOPER Plan of Treatment Health Maintenance Due Date Last Done Comments HPV VACCINES (1 - 3-dose series) 2014 DTAP/TDAP/TD VACCINES (1 - Tdap) 2018 HEPATITIS B VACCINES (1 of 3 - 19+ 3-dose series) 10/2017 CERVICAL CANCER SCREENING 2020 HPV/Cotest (21-29) 2020 PAP SMEAR 2020 INFLUENZA VACCINE (#1) 2025
== END 2025-07-06 11:52 | disposition home or self-care (01) ==
PROVIDERS: Emergency Provider Nurse Practitioner
DX: J06.9 Acute upper respiratory infection, unspecified (principal); F17.210 Nicotine dependence, cigarettes, uncomplicated; F17.290 Nicotine dependence, other tobacco product, uncomplicated
CPT/HCPCS: 87081; 87880; 99213; G0463